=== PATIENT | male | born 1990 | race Caucasian/White ===

== ENCOUNTER 2021-10-05 15:56 | Emergency (ER) | payer OTHER ==
[2021-10-05 16:24] VITALS: BP 124/77; PULSE 89; RESP 20; TEMP 98; BMI 20.3
== END 2021-10-05 18:25 | disposition home or self-care (01) ==
LOC: FER 15:56
DX: M25.511 Pain in right shoulder (principal); V49.40XA Driver injured in collision with unspecified motor vehicles in traffic accident, initial encounter
CPT/HCPCS: 73000-TC-RT-FY; 73030-TC-RT-FY; 73110-TC-LT-FY; 99284-25